=== PATIENT | female | born 1995 | race American Indian/Alaskan Native ===

== ENCOUNTER 2016-12-02 12:31 | Emergency (ER) | payer OTHER ==
[2016-12-02] MEDS ORDERED: MOTRIN PO ONE (16:13)
--- NOTE | 2016-12-02 16:18 | Emergency Department Report ---
HPI - General Chief Complaint: Upper Respiratory Infection - HPI HPI: 21-year-old female comes in with complaint of flulike symptoms that started 2 days ago. Patient complains of fever chills lightheadedness abdominal pain when she coughs only, cough eyes hurt,headache sore throat burning with deep breathing. She has tried no medications. She denies any nausea no vomiting no dysuria. She is is accompanied by her mother. ED Past Medical Hx - Past Medical History Previous Medical History?: No - Surgical History Past Surgical History?: No - Social History Smoking Status: Never Smoker Substance Use Type: Alcohol - Medications Home Medications: Home Medications Medication Instructions Recorded Confirmed Last Taken Type Cyclobenzaprine [Flexeril] 10 mg PO TID PRN #20 tablet 09/06/16 Unknown Rx Ibuprofen [Motrin 800 MG tab] 800 mg PO Q8HR PRN #30 tablet 12/02/16 Unknown Rx Loratadine [Claritin] 10 mg PO DAILY #30 tablet 12/02/16 Unknown Rx Promethazine /Codeine 5 ml PO Q6H PRN #180 ml 12/02/16 Unknown Rx [Phenergan/Codeine 6.25-10 mg/5 ml] ED Review of Systems ROS: Stated complaint: BODY PAIN Other details as noted in HPI Constitutional: chills, fever, weakness Eyes: eye pain ENT: throat pain Respiratory: cough Cardiovascular: chest pain (with cough) Gastrointestinal: denies: nausea, vomiting, diarrhea Genitourinary: denies: dysuria Neurological: headache Physical Exam - Physical Exam Vital Signs: Vital Signs 12/02/16 13:09 Temperature 99.7 F H Pulse Rate 103 H Respiratory 16 Rate Blood Pressure 111/69 O2 Sat by Pulse 100 Oximetry Physical Exam: GENERAL: Alert and oriented x3, no apparent distress, atraumatic. HEAD: Head is normocephalic and a-traumatic. EYES: Extra ocular muscles are intact. Pupils are equal, round, and reactive to light and accommodation. EARS: symetrical, atraumatic, non tender, ear canal clear and moderate cerumen, tympanic membrance non inflamed. gross auditory nml bilaterally. NOSE: Nose symetrical, Nontender,Nares appeared normal. MOUTH:Mouth is well hydrated and without lesions. Tonsils nonerythematous or swollen, Uvula midline, Tongue not elevated. Mucous membranes are moist. Posterior pharynx clear, no exudate or lesions. Patent airways. NECK: Supple. Non edematous, No carotid bruits. No lymphadenopathy or thyromegaly. LUNGS: Symetrical with respiration, No wheezing, no rales or crackles, CTAB. + cough HEART: S1, S2 present, regular rate and rhythm without murmur, no rubs, no gallops. ABDOMEN: No organomegaly was noted,Positive bowel sounds, soft, and non- distended. . Nontender to palpation on all Quadrants, NO CVA tenderness. NEUROLOGIC: No focal Deficit, Cranial nerves II through XII are grossly intact. No loss of sensation, No facial droop, Negative rhomberg. PSYCHIATRIC: Mood is congruent with affect, denies suicidal or homicidal ideations. SKIN: Warm and dry, No lesions, No ulceration or induration present ED Course Vital Signs 12/02/16 13:09 Temperature 99.7 F H Pulse Rate 103 H Respiratory 16 Rate Blood Pressure 111/69 O2 Sat by Pulse 100 Oximetry ED Medical Decision Making - Medical Decision Making She's been evaluated with his provider fast track we will send out a influenza test. Give patient ibuprofen 800 mg by mouth now. As the patient we will discharge her on Claritin 10 mg one 1 tablet by mouth daily, ibuprofen 800 mg 1 tablet by mouth 3 times a day when necessary, and promethazine with codeine 5 mg by mouth 3 times a day when necessary for cough. His constipation did operate a car or heavy machinery. Patient verbalized understanding Critical care attestation.: If time is entered above; I have spent that time in minutes in the direct care of this critically ill patient, excluding procedure time. ED Disposition Clinical Impression: URI, acute Disposition: DISCHARGED TO HOME OR SELFCARE Is pt being admited?: No Does the pt Need Aspirin: No Condition: Stable Instructions: Upper Respiratory Infection (ED) Additional Instructions: Please take medication as prescribed drink plenty of fluids rest symptoms get worse or does not improve please return back to the emergency room for further evaluation or he can follow up to primary care provider in 3-5 days Prescriptions: Ibuprofen [Motrin 800 MG tab] 800 mg PO Q8HR PRN #30 tablet PRN Reason: Pain Loratadine [Claritin] 10 mg PO DAILY #30 tablet Promethazine /Codeine [Phenergan/Codeine 6.25-10 mg/5 ml] 5 ml PO Q6H PRN #180 ml PRN Reason: cough Referrals: PRIMARY CARE, [Primary Care Provider] - 3-5 Days Forms: Work/School Release Form(ED), Accompanied Note
[2016-12-02 18:11] VITALS: BP 116/62
== END 2016-12-02 18:10 | disposition home or self-care (01) ==
LOC: ED 12:31
DX: J06.9 Acute upper respiratory infection, unspecified (principal)
CPT/HCPCS: 87400; 99282